=== PATIENT | male | born 1990 | race Caucasian/White ===

== ENCOUNTER 2018-02-03 09:43 | Emergency (ER) | payer OTHER | END 2018-02-03 10:53 | disposition home or self-care (01) | LOC: FTE 09:43 | DX: B37.42 Candidal balanitis (principal) | CPT/HCPCS: 99283; Z7502 ==

== ENCOUNTER 2018-07-27 10:48 | Emergency (ER) | payer OTHER ==
[2018-07-27] MEDS: IBUPROFEN 800 MG TAB PO (12:08)
== END 2018-07-27 13:31 | disposition home or self-care (01) ==
LOC: FTE 10:48
DX: M54.9 Dorsalgia, unspecified (principal); M25.512 Pain in left shoulder
CPT/HCPCS: 73030; 99283-25